=== PATIENT | female | born 1985 | race Caucasian/White ===

== ENCOUNTER 2017-12-31 16:25 | Outpatient (CLI) | payer OTHER | END 2017-12-31 16:32 | disposition home or self-care (01) | LOC: LAB 16:25 | DX: N39.0 Urinary tract infection, site not specified (principal) ==

== ENCOUNTER 2023-01-14 09:54 | Outpatient (CLI) | payer OTHER | END 2023-01-14 10:32 | disposition home or self-care (01) | LOC: NST 09:54 | PROVIDERS: ATTEND Obstetrics & Gynecology Gynecology | DX: Z34.83 Encounter for supervision of other normal pregnancy, third trimester (principal) ==

== ENCOUNTER 2023-01-28 13:11 | Inpatient (IN) | payer OTHER ==
[~2023-01-28] VITALS: Ht 160 cm; Wt 72.6 kg
[2023-02-11] MEDS ORDERED: PRENATAL TABLE1 EAC4 PO (15:48)
[2023-02-11] MEDS ORDERED: IRON325 MG PO (15:49)
[2023-02-11] MEDS ORDERED: VITAMIN D-40010 MCG PO (15:49)
== END 2023-02-14 11:57 | disposition home or self-care (01) | DRG 788 ==
LOC: LDR 02-11 14:35 → OB/GYN 02-11 18:52 → O/R 02-11 21:45 → LDR 02-11 23:19 → OB/GYN 02-12 15:15
PROVIDERS: ADMIT Obstetrics & Gynecology; ATTEND Obstetrics & Gynecology
PROC: 4A1HXCZ Monitoring of Products of Conception, Cardiac Rate, External Approach (ICD-10-PCS; 2023-02-11)
PROC: 10D00Z1 Extraction of Products of Conception, Low, Open Approach (ICD-10-PCS; principal; 2023-02-11 17:00)
DX: O14.14 Severe pre-eclampsia complicating childbirth (principal); Z3A.39 39 weeks gestation of pregnancy; Z37.0 Single live birth; Z20.822 Contact with and (suspected) exposure to COVID-19

== ENCOUNTER 2023-02-11 12:03 | Outpatient (CLI) | payer OTHER ==
[2023-02-11] MEDS ORDERED: PRENATAL TABLE1 EAC4 PO (15:48)
[2023-02-11] MEDS ORDERED: IRON325 MG PO (15:49)
[2023-02-11] MEDS ORDERED: VITAMIN D-40010 MCG PO (15:49)
== END 2023-02-11 12:38 | disposition home or self-care (01) ==
LOC: NST 12:03
PROVIDERS: ATTEND Obstetrics & Gynecology
DX: Z34.83 Encounter for supervision of other normal pregnancy, third trimester (principal)